=== PATIENT | male | born 1990 | race Two or more races ===

== ENCOUNTER 2017-05-18 02:30 | Emergency (ER) | payer MEDICAID ==
[~2017-05-18] VITALS: Ht 167.6 cm; Wt 62.6 kg
[2017-05-18 03:10] VITALS: BP 134/88
[2017-05-18] MEDS ORDERED: KETOROLAC TROMETH 60MG/2ML VIAL IM ONE ×2 (04:21→04:30)
== END 2017-05-18 05:00 | disposition home or self-care (01) ==
LOC: ER 02:34
DX: S40.012A Contusion of left shoulder, initial encounter (principal); W18.39XA Other fall on same level, initial encounter; Y93.89 Activity, other specified; Y92.89 Other specified places as the place of occurrence of the external cause; Y99.8 Other external cause status
CPT/HCPCS: 73030; 96372; 99284; J1885